=== PATIENT | male | born 1950 | race Caucasian/White ===

== ENCOUNTER 2016-11-20 06:34 | Day surgery (SDC) | payer SELFPAY ==
[~2016-11-20] VITALS: Ht 175.3 cm; Wt 89.4 kg
[2016-11-20] MEDS ORDERED: TYLENOL 500MG TAB PO (06:49)
[2016-11-20 08:32] VITALS: BP 130/93
== END 2016-11-20 09:37 | disposition home or self-care (01) | DRG 392 ==
LOC: ENDO 06:34 → ORM 09:45
PROVIDERS: ATTEND Surgery
PROC: 0DB78ZX Excision of Stomach, Pylorus, Via Natural or Artificial Opening Endoscopic, Diagnostic (ICD-10-PCS; principal; 2016-11-20)
PROC: 0DBN8ZX Excision of Sigmoid Colon, Via Natural or Artificial Opening Endoscopic, Diagnostic (ICD-10-PCS; 2016-11-20)
DX: R19.5 Other fecal abnormalities (principal); D12.5 Benign neoplasm of sigmoid colon; D50.9 Iron deficiency anemia, unspecified; K29.70 Gastritis, unspecified, without bleeding